=== PATIENT | female | born 1950 | race Caucasian/White ===

== ENCOUNTER 2018-12-11 08:35 | Day surgery (SDC) | payer OTHER ==
[~2018-12-11] VITALS: Ht 175.3 cm; Wt 77.1 kg
[2018-12-11] MEDS ORDERED: NALOXONE HCL 2 MG/2 ML SYR IVP ONE (08:36)
[2018-12-11] MEDS ORDERED: MEPERIDINE HCL/PF 100 MG/ML AMP ONE (09:01)
[2018-12-11] MEDS ORDERED: SIMETHICONE 40 MG/0.6 ML ML ONE (09:03)
[2018-12-11] MEDS ORDERED: MIDAZOLAM HCL 5 MG/5 ML VIAL ONE (09:03)
[2018-12-11] MEDS: MIDAZOLAM HCL 5 MG/5 ML VIAL ONE ×3 (09:14→09:18)
[2018-12-11] MEDS ORDERED: BENZOCAINE 20% 0.5mL UD SPRAY MM ONE (09:58)
[2018-12-11 11:34] VITALS: BP_SYST 115
== END 2018-12-11 11:20 | disposition home or self-care (01) ==
LOC: SDS 08:35
PROVIDERS: ATTEND Colon & Rectal Surgery
DX: Z12.11 Encounter for screening for malignant neoplasm of colon (principal); K57.30 Diverticulosis of large intestine without perforation or abscess without bleeding; K29.50 Unspecified chronic gastritis without bleeding; I12.9 Hypertensive chronic kidney disease with stage 1 through stage 4 chronic kidney disease, or unspecified chronic kidney disease; N18.3 Chronic kidney disease, stage 3 (moderate); Z79.899 Other long term (current) drug therapy; Z98.890 Other specified postprocedural states; Z82.49 Family history of ischemic heart disease and other diseases of the circulatory system; Z80.3 Family history of malignant neoplasm of breast; E03.9 Hypothyroidism, unspecified; E78.5 Hyperlipidemia, unspecified; G44.229 Chronic tension-type headache, not intractable; G43.119 Migraine with aura, intractable, without status migrainosus; Z88.8 Allergy status to other drugs, medicaments and biological substances; Z88.0 Allergy status to penicillin
CPT/HCPCS: 36415; 43239; 45378; 87081; 88305; 88312; 88313; J2175; J2250; J2310